=== PATIENT | male | born 1990 | race Caucasian/White ===

== ENCOUNTER → 2019-08-12 09:59 | Outpatient (BNVA) | payer OTHER, SELFPAY | PROVIDERS: Family Provider Emergency Medicine Emergency Medical Services; PCP Family Medicine; Visit Provider Nurse Practitioner | DX: F90.0 Attention-deficit hyperactivity disorder, predominantly inattentive type (principal); F41.1 Generalized anxiety disorder | CPT/HCPCS: 99213 ==

== ENCOUNTER → 2019-11-08 07:39 | Outpatient (BNVA) | payer OTHER, SELFPAY | PROVIDERS: Family Provider Emergency Medicine Emergency Medical Services; PCP Family Medicine; Visit Provider Nurse Practitioner | DX: F41.1 Generalized anxiety disorder (principal); F90.0 Attention-deficit hyperactivity disorder, predominantly inattentive type | CPT/HCPCS: 99213 ==

== ENCOUNTER → 2020-02-01 08:11 | Outpatient (BNVA) | payer OTHER, SELFPAY | PROVIDERS: Family Provider Emergency Medicine Emergency Medical Services; PCP Family Medicine; Visit Provider Nurse Practitioner | DX: F90.0 Attention-deficit hyperactivity disorder, predominantly inattentive type (principal); F41.1 Generalized anxiety disorder | CPT/HCPCS: 99213 ==

== ENCOUNTER → 2020-03-19 07:29 | Outpatient (BNVA) | payer OTHER, SELFPAY | PROVIDERS: Family Provider Emergency Medicine Emergency Medical Services; PCP Family Medicine; Visit Provider Nurse Practitioner | DX: F41.1 Generalized anxiety disorder (principal); F90.0 Attention-deficit hyperactivity disorder, predominantly inattentive type | CPT/HCPCS: 99213 ==

== ENCOUNTER → 2020-06-04 07:46 | Outpatient (BNVA) | payer OTHER, SELFPAY | PROVIDERS: Family Provider Emergency Medicine Emergency Medical Services; PCP Family Medicine; Visit Provider Nurse Practitioner | DX: F90.0 Attention-deficit hyperactivity disorder, predominantly inattentive type (principal); F41.1 Generalized anxiety disorder | CPT/HCPCS: 99214 ==

== ENCOUNTER → 2020-10-08 09:16 | Outpatient (BNVA) | payer OTHER, SELFPAY | PROVIDERS: Family Provider Emergency Medicine Emergency Medical Services; PCP Family Medicine; Visit Provider Nurse Practitioner | DX: F41.1 Generalized anxiety disorder (principal); F90.0 Attention-deficit hyperactivity disorder, predominantly inattentive type | CPT/HCPCS: 99214 ==

== ENCOUNTER → 2020-11-05 07:37 | Outpatient (BNVA) | payer OTHER, SELFPAY | PROVIDERS: Family Provider Emergency Medicine Emergency Medical Services; PCP Family Medicine; Visit Provider Nurse Practitioner | DX: F41.1 Generalized anxiety disorder (principal); F90.0 Attention-deficit hyperactivity disorder, predominantly inattentive type | CPT/HCPCS: 99214 ==

== ENCOUNTER 2020-11-12 07:55 | Emergency (ER) | payer OTHER, SELFPAY ==
[2020-11-12 08:07] VITALS: BP 126/69; PULSE 66; RESP 16; TEMP 36.8; O2SAT 99; BMI 31.5
[2020-11-12] MEDS: sodium chloride 0.9% 1,000 ML 999 ML IV (08:33)
--- NOTE | 2020-11-12 08:33 | XR_ITS ---
WS: [id number] Exam: XR cervical spine 3V* [id number] Date/Time of Exam: 11/12/2020 8:38 AM Reason For Exam: trauma Findings: In the AP projection, the cervical spine is straight. The odontoid process is intact. There are no c ervical ribs. In the lateral projections, the cervical curve is well maintained. There is no angula tion or fracture of the cervical spine. No soft tissue changes are noted. XR/XR cervical spine 3V* [id number] IMPRESSION: Negative cervical spine.
--- NOTE | 2020-11-12 08:33 | CT_ITS ---
WS: [id number] CT HEAD TECHNIQUE: Noncontrast CT of the head obtained from the skullbase to the vertex. CLINICAL INFORMATION: fall w LOC COMPARISON: None. DLP: 961.[address] scans at [facility] use at least one of these dose optimization techniques: automat ed exposure control; mA and/or kV adjustment per patient size (includes targeted exams where dose is matched to clinical indication); or iterative reconstruction. FINDINGS: No evidence of intracranial hemorrhage or mass effect. Ventricular system and basal cisterns are wallis nt. No extra-axial fluid collections. No evidence of mass or mass effect. Normal ambriz-white differen tiation. Paranasal sinuses and mastoid air cells are well aerated. .Normal visualized soft tissues. CT/CT head wo con* [id number] IMPRESSION: 1. No evidence of intracranial hemorrhage or mass effect. 2. Normal ambriz-white differentiation. 3. No acute intracranial findings.
--- NOTE | 2020-11-12 08:33 | XR_ITS ---
WS: [id number] Exam: XR nasal bones min 3V [id number] Date/Time of Exam: 11/12/2020 8:38 AM Reason For Exam: pain/fall There is a nondisplaced fracture of the nasal bone. The maxillary spine is intact. Slight leftward na luanne septal deviation. Visualized facial sinuses are clear. Mild soft tissue swelling over the nasal b ridge. XR/XR nasal bones min 3V [id number] IMPRESSION: 1. Nondisplaced nasal bone fracture.
[2020-11-12 08:37] LABS: Basophils % 0.4 %; Eosinophils # 0.4 10^3/uL (0.0-0.8); Eosinophils % 5.7 %; Hematocrit 46.3 % (42.0-52.0); Hemoglobin 16.1 g/dL (11.7-16.6); Lymphocytes # 1.8 10^3/uL (0.8-4.8); Lymphocytes % 26.9 %; Mean Corpuscular HGB Conc 34.8 g/dL (30.0-36.0); Mean Corpuscular Hemoglobin 32.2 pg (28.0-34.0); Mean Corpuscular Volume 92.6 fL (80-94); Mean Platelet Volume 10.4 fL (7.4-10.4); Monocytes # 0.5 10^3/uL (0.2-0.9); Monocytes % 6.6 %; Neutrophils # 4.12 10^3/uL (1.8-7.7); Neutrophils % 60.3 %; Nucleated Red Blood Cells % 0 %; Platelet Count 300 10^3/cmm (130-400); White Blood Count 6.8 10^3/uL (4.0-10.0)
--- NOTE | 2020-11-12 08:41 | ED_ITS ---
HPI - Syncope General: Chief Complaint: Abdominal Pain Stated Complaint: abdominal pain Time Seen by Provider: 11/12/20 07:56 History of Present Illness: HPI narrative: 30-year-old male presents emergency room after a fall at home. Little bit abdominal discomfort as well he woke up from his abdominal discomfort some cramping lower left quadrant he went to the bathroom attempted to have a bowel movement was unable to pass a stool when he got up he got lightheaded dizzy and then fell. He has previously had closed head injuries with concussion. When he fell he hit his face there is a brief loss of consciousness. He denies any other symptoms this time he does have some abrasions over the bridge of the nose and the glabella.No reported seizure-like activity MD complaint: loss of consciousness and collapsed Onset (ago): minute(s) Prodromal symptoms: none Context: at rest Injuries sustained associated with event: face Associated symptoms: Reports abdominal pain (Present prior to the syncopal episode); Deny chest pain, fever(s), headache(s), lightheadedness, nausea, short of breath, vertigo, weakness or other Treatments prior to arrival: none Review of Systems Const: Denies: fever(s) ENMT: Denies: throat pain, ear or mastoid pain, nasal discharge or nasal congestion Card: Denies: chest pain or lightheadedness Resp: Denies: dyspnea, productive cough or non-productive cough GI: Reports: abdominal pain (Present prior to the syncopal episode); Denies: nausea : Denies: flank pain, dysuria, urinary frequency or urinary urgency Skin/Breast: Denies: rash or pruritus Neuro: Denies: headache(s) or vertigo PFS ED PFSH: Medical History (Updated 11/12/20 @ 09:32 by Benjamin Weller DO) Attention-deficit hyperactivity disorder, predominantly inattentive type Generalized anxiety disorder Physical Exam Const: COMMON NORMALS: no acute distress GENERAL APPEARANCE: cooperative and comfortable ORIENTATION/CONSCIOUSNESS: Yes awake, Yes oriented to person, Yes oriented to place and Yes oriented to time HENMT: COMMON NORMALS: normocephalic, atraumatic, hearing grossly normal bilaterally, external ears normal, EAC's normal, TM's normal bilaterally, Normal nasal mucous membranes and turbinates present, moist oral mucous membranes and oropharynx normal HEAD & SCALP: normocephalic and atraumatic NOSE: Normal nasal mucous membranes and turbinates present EXTERNAL EAR: Yes external ears normal EXTERNAL AUDITORY CANAL: EAC's normal TYMPANIC MEMBRANE: TM's normal bilaterally Eye: COMMON NORMALS: Equal, round and reactive pupils present, EOMs intact bilaterally, conjunctivae normal and no scleral icterus CONJUNCTIVA: Yes conjunctivae normal PUPIL: Yes Equal, round and reactive pupils present Neck/C-Spine: COMMON NORMALS: full ROM, no lymphadenopathy, supple and no JVD Lymph: LYMPHATIC: no lymphadenopathy noted and no lymphedema noted Resp: COMMON NORMALS: normal respiratory effort, No retractions, No use of accessory muscles and clear to auscultation bilaterally AUSCULTATION: clear to auscultation bilaterally Cardio: COMMON NORMALS: no JVD, regular rate, regular rhythm and No murmurs present (Cardio) RATE: regular rate RHYTHM: regular rhythm GI: COMMON NORMALS: Soft to palpation and No hepatosplenomegaly present AUSCULTATION: Yes normoactive bowel sounds PALPATION: Yes Soft to palpation, No Tenderness to palpation present (GI), No Guarding due to palpation present (GI) and Yes No hepatosplenomegaly present Extremity: COMMON NORMALS: normal to inspection, capillary refill normal, no clubbing, cyanosis or edema, no calf tenderness and no pedal edema Neuro: SENSORIUM/ORIENTATION: Yes oriented to person, Yes oriented to place and Yes oriented to time Skin: COMMON NORMALS: no rashes or lesions noted GENERAL SKIN EXAM: no rashes or lesions noted Course Vital Signs: Vital signs: Vital Signs Temperature 98.2 F 11/12/20 08:07 Pulse Rate 69 11/12/20 09:54 Respiratory Rate 18 11/12/20 09:54 Blood Pressure 119/75 11/12/20 09:54 Pulse Oximetry 98 11/12/20 09:54 MDM - Syncope MDM Narrative: Medical decision making narrative: Labs and x-ray are unremarkable. Patient had this episode after he been on the toilet trying to have a bowel movement and got crampy lightheaded dizzy went to stand up and passed out. Sounds if he has a vasovagal episode he did have a small nondisplaced fracture of his nasal bone observe for now increase fluids. If has any further problems return to the emergency room otherwise follow-up with his primary care doctor. Lab Data: Labs: Lab Results 11/12/20 11/12/20 11/12/20 Range/Units 08:20 08:20 08:20 WBC 6.8 (4.0-10.0) 10^3/ uL RBC 5.00 (4.1-5.3) 10^6/u L Hgb 16.1 (11.7-16.6) g/dL Hct 46.3 (42.0-52.0) % MCV 92.6 (80-94) fL MCH 32.2 (28.0-34.0) pg MCHC 34.8 (30.0-36.0) g/dL RDW 12.0 L (12.1-15.1) % Plt Count 300 (130-400) 10^3/c mm MPV 10.4 (7.4-10.4) fL Neut % (Auto) 60.3 % Lymph % (Auto) 26.9 % [place] % (Auto) 6.6 % Eos % (Auto) 5.7 % Baso % (Auto) 0.4 % Neut # (Auto) 4.12 (1.8-7.7) 10^3/u L Lymph # (Auto) 1.8 (0.8-4.8) 10^3/u L [place] # (Auto) 0.5 (0.2-0.9) 10^3/u L Eos # (Auto) 0.4 (0.0-0.8) 10^3/u L Baso # (Auto) 0.0 (0.0-0.1) 10^3/u L Nucleated RBC % (a uto) 0 % Nucleated RBCs # 0.0 /100WBC Sodium 138 (136-145) mmol/L Potassium 3.7 (3.5-5.1) mmol/L Chloride 100 (98-107) mmol/L Carbon Dioxide 28 (22-29) mmol/L Anion Gap 13.7 (5-19) BUN 11 (6-20) mg/dL Creatinine 0.9 (0.7-1.2) mg/dL GFR Calculation 98.4 (90-130) mL/min Glucose 101 (65-115) mg/dL Calculated Osmolal ity 286 (285-295) mOsm/k g Calcium 8.9 (8.5-10.5) mg/dL Total Bilirubin 0.4 (0.15-1.2) mg/dL AST 25 (0-40) U/L ALT 59 H (0-41) U/L Alkaline Phosphata se 63 (40-130) IU/L Total Protein 7.1 (6.6-8.7) g/dL Albumin 4.7 (3.5-5.2) g/dL Globulin 2.4 (1.3-4.6) g/dL Lipase 37 (13-60) U/L Urine Color Yellow (Yellow) Urine Appearance Clear (CLEAR) Urine pH 5 (5-7) Ur Specific Gravit y 1.025 (1.005-1.030) Urine Protein Neg (Negative) Urine Glucose (UA) Norm (Normal) Urine Ketones Negative (Negative) Urine Blood Neg (Negative) Urine Nitrate Negative (Negative) Urine Bilirubin Neg (Negative) Urine Urobilinogen Norm (Negative) mg/dL Ur Leukocyte Leela ase Negative (Negative) Urine RBC None (0-2) /hpf Urine WBC Rare (0-5) /hpf Ur Squamous Epith Cells 0-4 H (0-5) /hpf Amorphous Sediment Not Reportable Urine Bacteria Trace (NONE) /hpf Urine Mucus 1+ /hpf Discharge Plan Discharge Patient Disposition: Home Clinical Impression: Vasovagal syncope, Fracture of nasal bone, Closed head injury Condition: Stable Prescriptions: No Action modafinil [Provigil] 200 mg tablet 200 mg PO DAILY Qty: 30 RF: 1 Discharge Orders: Discharge ED (Routine); Ordered 11/12/20 Ordered By: Benjamin Weller Referrals: aCtarina Abreu MD [Primary Care Provider] - Discharge Diet: Usual diet Discharge Activity: Resume usual activity Patient Instructions: Opioid Safety Activity Restrictions/Additional Instructions: Follow-up with your primary care doctor within a week return if you have further problems. Coding Level of Care Code ED Electrical Engineering Technologist for Esperanza Fwd Exam Comprehensive
[2020-11-12 08:57] LABS: Specific Gravity, Urine 1.025 (1.005-1.030); Urine Appearance Clear (CLEAR); Urine Color Yellow (Yellow); pH Urine 5 (5-7)
[2020-11-12 08:58] LABS: Add Urine Culture? No; Add Urine Microscopic? YES; Bacteria Urine TRACE /hpf; Bilirubin Urine Neg (Negative); Blood Urine Neg (Negative); Glucose Urine UA Norm (Normal); Ketones Urine Negative (Negative); Leukocyte Esterase Urine Negative (Negative); Mucus Urine 1+ /hpf; Nitrate Urine Negative (Negative); Protein Urine Neg (Negative); Squamous Epithelial Cell Urine 0-4 /hpf (0-5); Urobilinogen Urine Norm (Negative); WBC Urine RARE /hpf (0-5)
[2020-11-12 08:59] LABS: Alanine Aminotransferase 59 U/L (0-41); Albumin Level 4.7 g/dL (3.5-5.2); Alkaline Phosphatase 63 IU/L (40-130); Anion Gap 13.7 (5-19); Aspartate Amino Transferase 25 U/L (0-40); Blood Urea Nitrogen 11 mg/dL (6-20); Calcium 8.9 mg/dL (8.5-10.5); Carbon Dioxide 28 mmol/L (22-29); Chloride 100 mmol/L (98-107); Globulin 2.4 g/dL (1.3-4.6); Glomerular Filtration Rate 98.4 mL/min (90-130); Glucose 101 mg/dL (65-115); Lipase 37 U/L (13-60); Osmolality Calculated 286 mOsm/kg (285-295); Potassium 3.7 mmol/L (3.5-5.1); Sodium 138 mmol/L (136-145); Total Bilirubin 0.4 mg/dL (0.15-1.2); Total Protein 7.1 g/dL (6.6-8.7)
[2020-11-12 09:43] VITALS: BP 119/73; PULSE 63; RESP 16; O2SAT 98
[2020-11-12 09:54] VITALS: BP 119/75; PULSE 69; RESP 18; O2SAT 98
== END 2020-11-12 09:56 | disposition home or self-care (01) ==
PROVIDERS: Emergency Provider Family Medicine; PCP Family Medicine
DX: R55 Syncope and collapse (principal); S09.8XXA Other specified injuries of head, initial encounter; S02.2XXA Fracture of nasal bones, initial encounter for closed fracture; S06.9X0A Unspecified intracranial injury without loss of consciousness, initial encounter; W19.XXXA Unspecified fall, initial encounter
CPT/HCPCS: 70160; 70450; 72040; 80053; 81001; 83690; 85025; 96360; 99283; J7030

== ENCOUNTER 2020-11-22 13:30 | Outpatient (CLI) | payer OTHER, SELFPAY | END 2020-11-22 13:31 | disposition home or self-care (01) | PROVIDERS: PCP Family Medicine; Visit Provider Obstetrics & Gynecology | DX: U07.1 COVID-19 (principal) | CPT/HCPCS: 86769 ==

== ENCOUNTER → 2021-07-23 07:15 | Outpatient (BNVA) | payer OTHER, BC, SELFPAY | PROVIDERS: PCP Family Medicine; Visit Provider Nurse Practitioner | DX: F90.0 Attention-deficit hyperactivity disorder, predominantly inattentive type (principal); F41.1 Generalized anxiety disorder | CPT/HCPCS: 99214 ==

== ENCOUNTER 2021-10-20 15:53 | Emergency (ER) | payer OTHER, SELFPAY ==
[2021-10-20 16:18] VITALS: BP 163/107; PULSE 88; RESP 16; TEMP 37; O2SAT 99; BMI 33.0
--- NOTE | 2021-10-20 17:11 | ECG_ITS ---
[facility] Test Date: 2021-10-20 Pat Name: Naveen Leo Department: Room: Gender: Male Driver Guard: : 1990 Requested By: Augusto Agustin Order Number: [id number] Mora MD: Jackson Galvan M.D. Measurements Intervals [place] Rate: 70 P: 59 NV: 168 QRS: 11 QRSD: 110 T: 31 QT: 347 QTc: 375 Interpretive Statements SINUS RHYTHM No previous ECG available for comparison Electronically Signed On 10-21-2021 8:04:34 CDT by Jackson Galvan M.D. [email or web address]
--- NOTE | 2021-10-20 17:29 | ED_ITS ---
HPI - General Adult General: Chief complaint: General Medical Stated complaint: High blood pressure Time Seen by Provider: 10/20/21 17:03 History of Present Illness: Patient is a 31-year-old male comes to the ED with hypertension. Patient's labs for the past 3 weeks he has had high blood pressure. He has been having blood pressures at home where his systolic is in the 160s and his diastolic is over 100. He is not currently on any blood pressure medications. He also endorses having episodes of blurry vision at times and says his hands are swelling. Blurry vision he says is episodic and he described the other day being able to read a license plate from 20 feet away. Currently in the ED he does not have any blurry vision. Denies any pain in hands. Patient was taking prednisone a little over 2 weeks ago to help with his allergies and then generalized rash. Patient does take Adderall for ADHD. Patient says he drinks approximately 2 red bulls a day. Denies any headache, Chest pain, shortness of breath, nausea/vomiting, fevers, chills, abdominal pain, bladder or bowel symptoms. Associated symptoms: Deny chest pain, dyspnea, headache(s), nausea, rash, palpitations or vomiting Review of Systems Const: Denies: fever(s), chills or fatigue Eyes: Reports: blurry vision; Denies: change in vision or eye discomfort ENMT: Denies: throat pain, odynophagia, nasal discharge or nasal congestion Card: Denies: chest pain, palpitations, edema, swelling of feet/ankles, dysp [place] on exertion or orthopnea Resp: Denies: dyspnea, productive cough or non-productive cough GI: Denies: abdominal pain, nausea, vomiting, diarrhea, constipation or hematochezia : Denies: flank pain, difficulty urinating, dysuria or hematuria Musc: Reports: extremity swelling (Bilateral hand swelling); Denies: neck pain or back pain Skin/Breast: Denies: rash or new lesions Neuro: Denies: headache(s), numbness in extremities or weakness in extremities PFS ED PFSH: Medical History Attention-deficit hyperactivity disorder, predominantly inattentive type COVID-19 Generalized anxiety disorder Psychiatric care Physical Exam Const: COMMON NORMALS: no acute distress, patient oriented x3, healthy appearing and alert GENERAL APPEARANCE: cooperative and comfortable HENMT: COMMON NORMALS: normocephalic HEAD & SCALP: normocephalic MOUTH: Normal oral and palatal mucosa present THROAT: posterior oropharynx normal and uvula midline Eye: COMMON NORMALS: Equal, round and reactive pupils present, EOMs intact bilaterally and conjunctivae normal CONJUNCTIVA: Yes conjunctivae normal PUPIL: Yes Equal, round and reactive pupils present Neck/C-Spine: COMMON NORMALS: supple GENERAL: Yes normal visual inspection Resp: COMMON NORMALS: normal respiratory effort, No retractions, No use of accessory muscles and clear to auscultation bilaterally AUSCULTATION: clear to auscultation bilaterally Cardio: COMMON NORMALS: regular rate, regular rhythm, S1 normal heart sound present, S2 normal heart sound present, No gallops present (Cardio), No clicks present (Cardio), No murmurs present (Cardio) and Peripheral pulses 2+ throughout RATE: regular rate RHYTHM: regular rhythm HEART SOUNDS: S1 normal heart sound present and S2 normal heart sound present PERIPHERAL PULSES: Peripheral pulses 2+ throughout GI: COMMON NORMALS: Normal to inspection, nondistended, normoactive bowel sounds present, Soft to palpation, non-tender and no masses PALPATION: Yes Soft to palpation : COMMON NORMALS: Yes no CVA tenderness BLADDER/KIDNEY EXAM: Yes no CVA tenderness Back/Pelvis: COMMON NORMALS: no CVA tenderness Extremity: COMMON NORMALS: normal to inspection and no pedal edema Neuro: COMMON NORMALS: patient oriented x3 and moves all extremities S ENSORIUM/ORIENTATION: Yes alert Skin: GENERAL SKIN EXAM: dry skin Course Vital Signs: Vital signs: Vital Signs Temperature 98.6 F 10/20/21 16:18 Pulse Rate 81 10/20/21 18:38 Respiratory Rate 14 10/20/21 18:38 Blood Pressure 154/86 10/20/21 18:38 Pulse Oximetry 98 10/20/21 18:38 [facility] - General Adult Medical Decision Making Patient is a 31-year-old male comes to the ED with elevated blood pressures. He said he has been having blood pressures with a systolic over 160 and diastolic over 100 at home. He reports some nonspecific symptoms of generalized bilateral hand swelling and some episodes of blurry vision over the past 3 weeks. Patient does report drinking 2 Red bulls a day. denies any headache, chest pain or shortness of breath or any other neurological symptoms. Vitals are stable and patient's blood pressure was 154/86 here in the ED. Exam is benign. Labs are unremarkable. EKG normal sinus rhythm, [address] segment elevation or depression seen. I offered to do a head CT on patient since he has been having blurred vision, but he refused the head CT. Patient was stable for discharge home and I told him to follow-up with his PCP within the next week for reevaluation and to continually check his blood pressures 3 times a day and to journal them down so we can show his primary care physician. Return to ED precautions given. Patient stood agree with plan. Lab Data I reviewed the patient's lab results. : 10/20/21 17:10/20/21 Laboratory Results WBC 9.4 10^3/uL (4.0-10.0) 10/20/21: RBC 4.88 10^6/uL (4.1-5.3) 10/20/21: Hgb 15.6 g/dL (11.7-16.6) 10/20/21: Hct 47.6 % (42.0-52.0) 10/20/21: MCV 97.5 fl (80-94) H 10/20/21: MCH 32.0 pg (28.0-34.0) 10/20/21: MCHC 32.8 g/dL (30.0-36.0) 10/20/21: RDW 12.7 % (12.1-15.1) 10/20/21: Plt Count 339 10^3/cmm (130-400) 10/20/21: MPV 9.8 fL (7.4-10.4) 10/20/21: Neut % (Auto) 68.9 % 10/20/21: Lymph % (Auto) 20.0 % 10/20/21: [place] % (Auto) 9.1 % 10/20/21: Eos % (Auto) 1.1 % 10/20/21: Baso % (Auto) 0.5 % 10/20/21: Neut # (Auto) 6.47 10^3/uL (1.8-7.7) 10/20/21 17:28 Lymph # (Auto) 1.9 10^3/uL (0.8-4.8) 10/20/21 17: [place] # (Auto) 0.9 10^3/uL (0.2-0.9) 10/20/21 17:28 Eos # (Auto) 0.1 10^3/uL (0.0-0.8) 10/20/21 17: Baso # (Auto) 0.1 10^3/uL (0.0-0.1) 10/20/21 17: Nucleated RBC % (auto) 0 % 10/20/21 17: Nucleated RBCs # 0.0 /100WBC 10/20/21 17: Sodium 139 mmol/L (136-145) 10/20/21 17: Potassium 3.6 mmol/L (3.5-5.1) 10/20/21 17: Chloride 103 mmol/L (98-107) 10/20/21: Carbon Dioxide 28 mmol/L (22-29) 10/20/21 17: Anion Gap 11.6 (5-19) 10/20/21 17: BUN 8 mg/dL (6-20) 10/20/21 17: Creatinine 0.9 mg/dL (0.7-1.2) 10/20/21 17: GFR Calculation 97.8 mL/min (90-130) 10/20/21 17: Glucose 72 mg/dL (65-115) 10/20/21: Calculated Osmolality 285 mOsm/kg (285-295) 10/20/21 17:28 Calcium 8.0 mg/dL (8.5-10.5) L 10/20/21 17:28 EKG Data EKG 1: EKG interpretation date: 10/20/21 Interpretation: Normal sinus rhythm, 70 bpm, no ST segment elevation or depression seen. Discharge Plan Discharge Patient Disposition: Home Clinical Impression: Blood pressure check Condition: Stable Prescriptions: No Action zolpidem [Ambien] 5 mg tablet 5 mg PO .HS PRN (Reason: sleep) Qty: 30 1RF dextroamphetamine-amphetamine [Adderall XR] 20 mg capsule,extended release 24hr 20 mg PO QAM 30 Days Qty: 30 0RF dextroamphetamine-amphetamine [Adderall XR] 20 mg capsule,extended release 24hr 20 mg PO QAM 30 Days Qty: 30 0RF dextroamphetamine-amphetamine [Adderall XR] 20 mg capsule,extended release 24hr 20 mg PO QAM 30 Days Qty: 30 0RF Discharge Orders: Discharge ED (Routine); Ordered 10/20/21 Ordered By: Augusto Agustin Referrals: Catarina Abreu MD [Primary Care Provider] - Discharge Diet: Regular Discharge Activity: Resume usual activity Activity Restrictions/Additional Instructions: Follow-up with medical provider as directed. Contact your primary care doctor and set up an appoint with them to have your blood pressure checked. Check your blood pressure about 3 times a day and keep a log of daily blood pressures so PCP can evaluate them at next visit. appoint with an major case detective to have vision checked. Return to the ER or your medical provider if condition worsens. Please read and understand discharge instructions. Thank you for choosing [facility] for your healthcare needs today. Please realize this is an emergency room and that we are providing you with a medical screening exam and this may not be complete and all inclusive of all the testing and or work up that you may need to determine your ailment or severity of your illness. It is very important that you follow up as instructed or that you return to the Emergency Department should you have concerns or if your condition changes or worsens in any way. Coding Level of Care Code ED Banking Analyst for Esperanza Frausto Exam Comprehensive
[2021-10-20 17:44] LABS: Basophils # 0.1 10^3/uL (0.0-0.1); Basophils % 0.5 %; Eosinophils # 0.1 10^3/uL (0.0-0.8); Eosinophils % 1.1 %; Hematocrit 47.6 % (42.0-52.0); Hemoglobin 15.6 g/dL (11.7-16.6); Lymphocytes # 1.9 10^3/uL (0.8-4.8); Mean Corpuscular HGB Conc 32.8 g/dL (30.0-36.0); Mean Corpuscular Volume 97.5 fl (80-94); Mean Platelet Volume 9.8 fL (7.4-10.4); Monocytes # 0.9 10^3/uL (0.2-0.9); Monocytes % 9.1 %; Neutrophils # 6.47 10^3/uL (1.8-7.7); Neutrophils % 68.9 %; Nucleated Red Blood Cells % 0 %; Platelet Count 339 10^3/cmm (130-400); Red Blood Count 4.88 10^6/uL (4.1-5.3); Red Cell Distribution Width 12.7 % (12.1-15.1); White Blood Count 9.4 10^3/uL (4.0-10.0)
[2021-10-20 17:58] LABS: Blood Urea Nitrogen 8 mg/dL (6-20); Carbon Dioxide 28 mmol/L (22-29); Chloride 103 mmol/L (98-107); Glomerular Filtration Rate 97.8 mL/min (90-130); Glucose 72 mg/dL (65-115); Osmolality Calculated 285 mOsm/kg (285-295); Sodium 139 mmol/L (136-145)
[2021-10-20 18:36] LABS: Anion Gap 11.6 (5-19); Potassium 3.6 mmol/L (3.5-5.1)
[2021-10-20 18:38] VITALS: BP 154/86; PULSE 81; RESP 14; O2SAT 98
== END 2021-10-20 19:19 | disposition home or self-care (01) ==
PROVIDERS: Physician Assistant; Emergency Provider Physician Assistant; PCP Family Medicine
DX: Z01.30 Encounter for examination of blood pressure without abnormal findings (principal); Z71.1 Person with feared health complaint in whom no diagnosis is made; H53.8 Other visual disturbances; M79.89 Other specified soft tissue disorders; Z79.899 Other long term (current) drug therapy
CPT/HCPCS: 80048; 85025; 93005; 99283

== ENCOUNTER → 2021-11-11 08:22 | Outpatient (BNVA) | payer OTHER, SELFPAY | PROVIDERS: PCP Family Medicine; Visit Provider Nurse Practitioner | DX: F41.1 Generalized anxiety disorder (principal); F90.0 Attention-deficit hyperactivity disorder, predominantly inattentive type | CPT/HCPCS: 99214 ==